=== PATIENT | male | born 1985 | race Caucasian/White ===

== ENCOUNTER 2016-08-09 18:19 | Emergency (ER) | payer OTHER ==
[2016-08-09 18:42] VITALS: RESP 20; TEMP 98.5
[2016-08-09 19:05] VITALS: O2SAT 97
[2016-08-09 19:22] LABS: BASOPHILS % (AUTO) 1 % (0-3); EOSINOPHILS % (AUTO) 1 % (0-9); HEMATOCRIT 45 % (39-53); MEAN CORPUSCULAR HGB CONC 35.7 gm/dl (32.0-36.0); MEAN CORPUSCULAR VOLUME 86 fL (80-100); NEUTROPHILS % (AUTO) 68.8 % (37-80)
[2016-08-09 19:27] LABS: CALCIUM 8.2 mg/dl (8.5-10.1); POTASSIUM 3.3 mMol/L (3.5-5.1)
[2016-08-09 19:48] LABS: AMPHETAMINES NEGATIVE (NEGATIVE); METHADONE NEGATIVE (NEGATIVE); OPIATES(OP13) NEGATIVE (NEGATIVE); OXYCODONE(OXY) NEGATIVE (NEGATIVE); PROPOXYPHENE(PPX) NEGATIVE (NEGATIVE); TRICYCLIC ANTIDEPRESSANTS NEGATIVE (NEGATIVE)
[2016-08-09] MEDS ORDERED: TDAP VACCINE 0.5 ML SUS IM ONE ×2 (20:26→20:27)
[2016-08-09 21:02] VITALS: BP 99/78; PULSE 129
== END 2016-08-09 20:52 | disposition home or self-care (01) | DRG 605 ==
LOC: ED 18:19
DX: S01.81XA Laceration without foreign body of other part of head, initial encounter (principal); F10.129 Alcohol abuse with intoxication, unspecified; V48.6XXA Car passenger injured in noncollision transport accident in traffic accident, initial encounter; Y90.6 Blood alcohol level of 120-199 mg/100 ml
CPT/HCPCS: 70450; 73130; 80048; 80305; 80307; 85025; 90471; 90715; 99284; 99285; G0168